=== PATIENT | male | born 1950 ===

== ENCOUNTER 2018-07-16 16:43 | Emergency (ER) | payer MEDICARE ==
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
--- NOTE | 2018-07-17 09:24 | Diagnostic Imaging Report ---
Exam: Lumbosacral spine. HISTORY: Pain Prior exam: None Findings: Multiple views of lumbar sacral spine reviewed. The study demonstrates no evidence of fracture dislocation. There is no evidence of spondylolysis or spondylolisthesis mild narrowing of the L5-S1 intervertebral disc spaces noted. No prevertebral soft tissue swelling is noted. The pedicles are intact. IMPRESSION: Mild degenerative narrowing of the L5-S1 intervertebral disc space.
== END 2018-07-16 17:24 | disposition home or self-care (01) ==
LOC: ER 16:43
DX: S39.012A Strain of muscle, fascia and tendon of lower back, initial encounter (principal); V49.49XA Driver injured in collision with other motor vehicles in traffic accident, initial encounter; Y93.89 Activity, other specified; Y92.410 Unspecified street and highway as the place of occurrence of the external cause; Y99.8 Other external cause status
CPT/HCPCS: 72100-TC; Z7502